=== PATIENT | female | born 1930 | race Caucasian/White ===

== ENCOUNTER → 2019-09-12 | Outpatient (CLI) | payer MEDICARE, OTHER ==
--- NOTE | 2019-09-12 16:13 | Diagnostic Imaging Report ---
Thyroid Ultrasound Clinical Diagnosis: Thyroid nodules Comparison: 05/26/2016 Technique: The longitudinal and transaxial images of the thyroid were obtained with a linear transducer. Report: Right lobe: The right lobe measures 3.9 cm x 1.4 cm x 0.9 cm. Normal echogenicity and vascularity. In the right interpolar region there is a 0.5 x 0.9 x 0.8 cm solid isoechoic nodule previously measured 0.4 x 0.7 x 0.4 cm. In the inferior pole there is a 0.8 x 0.4 x 0.5 cm solid hypoechoic nodule which previously measured 1.0 x 0.5 x 0.5 cm. 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 The isthmus measures 0.2 mm. Left lobe: The left lobe measures 3.9 cm x 0.0 cm x 1.5 cm. Normal echogenicity and vascularity. Interpolar region there is a 0.7 x 0.6 x 0.7 cm solid hypoechoic nodule which is grossly measured 0.7 x 0.4 x 0.8 cm. In the upper pole there is a 0.6 x 0.4 x 0.6 hypoechoic nodule which previously measured 0.4 x 0.3 x 0.5 cm. Several unchanged colloid cyst are also identified. Impression: Subcentimeter bilateral thyroid nodules as described above without suspicious features or significant interval change. Signed by: Jerrell Acevedo MD on 09/12/2019 4:09 PM
== END ==
LOC: US 10:42
PROVIDERS: ATTEND Otolaryngology
DX: E04.2 Nontoxic multinodular goiter (principal)
CPT/HCPCS: 76536